=== PATIENT | male | born 1955 | race American Indian/Alaskan Native ===

== ENCOUNTER 2016-10-24 14:52 | Emergency (ER) | payer SELFPAY ==
[2016-10-24 15:28] VITALS: BP 142/92
[2016-10-24 15:49] LABS: Basophils % (Auto) 0.6 % (0.0-1.8); Eosinophils % (Auto) 1.6 % (0.0-4.3); Hematocrit 39.3 % (35.5-45.6); Hemoglobin 12.8 gm/dl (11.8-15.2); Mean Corpuscular HGB Conc 33 % (32-34); Mean Corpuscular Hemoglobin 28 pg (28-32); Mean Corpuscular Volume 85 fl (84-94); Platelet Count 246 K/mm3 (140-440); Red Blood Count 4.64 M/mm3 (3.65-5.03); Red Cell Distribution Width 15.5 % (13.2-15.2); White Blood Count 3.6 K/mm3 (4.5-11.0)
[2016-10-24 16:11] LABS: Albumin 4.6 g/dL (3.9-5); Albumin/Globulin Ratio 1.6 %; Bilirubin,Total 0.5 mg/dL (0.1-1.2); Calcium 9.4 mg/dL (8.4-10.2); Chloride 98.1 mmol/L (98-107); Potassium 4.5 mmol/L (3.6-5.0); Total Protein 7.4 g/dL (6.3-8.2)
[2016-10-24 17:42] LABS: Bilirubin,Urine NEG (Negative); Blood,Urine NEG (Negative); Ketones,Urine NEG (Negative); Leukocyte Esterase,Urine NEG (Negative); Mucus,Urine FEW /HPF; Nitrite,Urine NEG (Negative); Protein,Urine <15 mg/dL mg/dL (Negative); Urobilinogen,Urine < 2.0 mg/dL (<2.0)
--- NOTE | 2016-10-26 17:09 | ED Elopement Review ---
ED Pt Elopement review - Results review Lab results: Laboratory Tests 10/24/16 10/24/16 10/24/16 15:34 15:34 Unknown WBC 3.6 L RBC 4.64 Hgb 12.8 Hct 39.3 MCV 85 MCH 28 MCHC 33 RDW 15.5 H Plt Count 246 Lymph % (Auto) 45.7 H Blair % (Auto) 10.1 H Eos % (Auto) 1.6 Baso % (Auto) 0.6 Lymph # 1.6 Blair # 0.4 Eos # 0.1 Baso # 0.0 Seg Neutrophils % 42.0 Seg Neutrophils # 1.5 L Sodium 136 L Potassium 4.5 Chloride 98.1 Carbon Dioxide 26 Anion Gap 16 BUN 15 Creatinine 1.5 Estimated GFR 58 BUN/Creatinine Ratio 10.00 Glucose 114 H Calcium 9.4 Total Bilirubin 0.50 AST 19 ALT 12 Alkaline Phosphatase 45 Total Protein 7.4 Albumin 4.6 Albumin/Globulin Ratio 1.6 Urine Color Yellow Urine Turbidity Clear Urine pH 5.0 Ur Specific [place] 1.016 Urine Protein <15 mg/dl Urine Glucose (UA) Neg Urine Ketones Neg Urine Blood Neg Urine Nitrite Neg Urine Bilirubin Neg Urine Urobilinogen < 2.0 Ur Leukocyte Esterase Neg Urine WBC (Auto) 1.0 Urine RBC (Auto) 2.0 U Epithel Cells (Auto) < 1.0 Urine Mucus Few - Call Back decision Pt Call Back Decision: No action required
== END 2016-10-24 21:08 | disposition left against medical advice (07) ==
LOC: ED 14:52
DX: R51 Headache (principal); R42 Dizziness and giddiness; Z53.21 Procedure and treatment not carried out due to patient leaving prior to being seen by health care provider
CPT/HCPCS: 36415; 80053; 81001; 85025; 93005; 93010

== ENCOUNTER 2021-02-15 05:47 | Observation (INO) | payer SELFPAY ==
[2021-02-15] MEDS ORDERED: ONDANSETRON 4 MG/2 ML INJ IM ONE (15:25)
--- NOTE | 2021-02-15 15:29 | Emergency Department Report ---
<SMITHA MAZARIEGOS - Last Filed: 02/15/21 23:07> ED Abdominal Pain HPI - General Chief Complaint: Abdominal Pain Stated Complaint: NAUSEA/ETOH Time Seen by Provider: 02/15/21 15:25 - Related Data Previous Rx's Medication Instructions Recorded Last Taken Type Aspirin EC [Ecotrin] 325 mg PO QDAY #30 tablet 02/17/21 Unknown Rx Lisinopril [Zestril TAB] 10 mg PO DAILY #30 02/17/21 Unknown Rx Pantoprazole [Protonix] 40 mg PO QDAY #30 tablet 02/17/21 Unknown Rx Allergies Allergy/AdvReac Type Severity Reaction Status Date / Time No Known Allergies Allergy Verified 02/15/21 15:49 ED Past Medical Hx - Medications Home Medications: Home Medications Medication Instructions Recorded Confirmed Last Taken Type Aspirin EC [Ecotrin] 325 mg PO QDAY #30 tablet 02/17/21 Unknown Rx Lisinopril [Zestril TAB] 10 mg PO DAILY #30 02/17/21 Unknown Rx Pantoprazole [Protonix] 40 mg PO QDAY #30 tablet 02/17/21 Unknown Rx ED Medical Decision Making - Lab Data Result diagrams: 02/15/21 15:29 02/15/21 15:29 ED Disposition Clinical Impression: Elevated troponin, Non-STEMI (non-ST elevated myocardial infarction) Disposition: ADMITTED INPATIENT Is pt being admited?: Yes Does the pt Need Aspirin: Yes Condition: Stable <LEBRON PAPPAS - Last Filed: 02/18/21 11:05> ED Abdominal Pain HPI - General Source: patient Mode of arrival: Ambulatory Limitations: No Limitations - History of Present Illness Initial Comments: Patient is 65 years old male with history of hypertension. Patient presented to the ER complaining of epigastric abdominal pain started last night. Patient stated that pain started after he started drinking alcohol. Patient also reported nausea and vomiting. He denied any hematemesis, melena or hematochezia. Patient also denied any chest pain or shortness of breath. No fever or chills. MD Complaint: abdominal pain -: Last night Location: epigastric Radiation: none Migration to: no migration Severity: moderate Associated Symptoms: nausea, vomiting ED Review of Systems ROS: Stated complaint: NAUSEA/ETOH Other details as noted in HPI Comment: All other systems reviewed and negative Constitutional: denies: chills, fever Respiratory: denies: cough, shortness of breath, SOB with exertion Cardiovascular: denies: chest pain, palpitations Gastrointestinal: abdominal pain, nausea, vomiting. denies: diarrhea, cons tipation, hematemesis, melena, hematochezia Genitourinary: denies: testicular pain, testicular mass Musculoskeletal: denies: back pain Neurological: denies: headache, weakness, numbness, paresthesias, confusion Psychiatric: anxiety. denies: suicidal thoughts ED Past Medical Hx - Past Medical History Previous Medical History?: Yes Hx Hypertension: Yes (2013) Hx Congestive Heart Failure: No Hx Diabetes: No Hx GERD: Yes Hx Sickle Cell Disease: No Hx Arthritis: Yes Hx Asthma: No Hx COPD: No Additional medical history: Previous GI ulcers,. recoverying alcolholic. VERTIGO - Surgical History Past Surgical History?: Yes Additional Surgical History: chest tube right side about 3 yrs ago. HEMORRHOIDECTOMY - Social History Smoking Status: Former Smoker Substance Use Type: None ED Physical Exam - General Limitations: No Limitations General appearance: alert, in no apparent distress - Head Head exam: Present: atraumatic, normocephalic, normal inspection - Eye Eye exam: Present: normal appearance, PERRL - ENT ENT exam: Present: normal exam, normal orophraynx, mucous membranes moist - Neck Neck exam: Present: normal inspection, full ROM. Absent: tenderness, meningismus - Respiratory Respiratory exam: Present: normal lung sounds bilaterally - Cardiovascular Cardiovascular Exam: Present: tachycardia. Absent: systolic murmur, diastolic murmur, gallop - GI/Abdominal GI/Abdominal exam: Present: soft, normal bowel sounds. Absent: distended, tenderness, guarding, rebound, rigid, organomegaly, mass, bruit, pulsatile mass, hernia - Back Exam Back exam: Present: normal inspection, full ROM. Absent: CVA tenderness (R), CVA tenderness (L) - Neurological Exam Neurological exam: Present: alert, oriented X3, CN II-XII intact, normal gait, reflexes normal - Psychiatric Psychiatric exam: Present: normal mood. Absent: suicidal ideation - Skin Skin exam: Present: warm, intact, normal color ED Course Vital Signs 02/15/21 02/15/21 02/15/21 14:47 18:16 20:39 Temperature 98.7 F 99.8 F H Pulse Rate 114 H 123 H Respiratory 18 17 Rate Blood Pressure 151/89 164/98 Blood Pressure [Left] O2 Sat by Pulse 99 99 99 Oximetry 02/16/21 02/16/21 02/16/21 08:07 08:25 08:26 Temperature Pulse Rate Respiratory Rate Blood Pressure 146/91 147/89 135/84 Blood Pressure [Left] O2 Sat by Pulse Oximetry 02/16/21 02/16/21 02/16/21 08:27 08:28 08:30 Temperature Pulse Rate Respiratory Rate Blood Pressure 141/86 138/88 130/85 Blood Pressure [Left] O2 Sat by Pulse Oximetry 02/16/21 02/16/21 02/16/21 10:19 10:25 10:30 Temperature 99.2 F Pulse Rate 86 94 H Respiratory 16 Rate Blood Pressure 142/87 Blood Pressure 142/87 [Left] O2 Sat by Pulse 97 100 99 Oximetry 02/16/21 02/16/21 02/16/21 10:46 11:00 11:16 Temperature Pulse Rate 77 81 90 Respiratory Rate Blood Pressure 142/87 114/65 114/65 Blood Pressure [Left] O2 Sat by Pulse 98 98 100 Oximetry 02/16/21 02/16/21 02/16/21 11:30 11:46 12:00 Temperature Pulse Rate 79 83 87 Respiratory Rate Blood Pressure 142/87 142/87 112/70 Blood Pressure [Left] O2 Sat by Pulse 98 99 99 Oximetry 02/16/21 02/16/21 02/16/21 12:16 12:30 12:46 Temperature Pulse Rate 80 92 H 100 H Respiratory Rate Blood Pressure 112/70 112/70 112/70 Blood Pressure [Left] O2 Sat by Pulse 98 99 99 Oximetry 02/16/21 02/16/21 02/16/21 13:00 13:16 13:30 Temperature Pulse Rate 110 H 105 H 100 H Respiratory Rate Blood Pressure 112/70 112/70 112/70 Blood Pressure [Left] O2 Sat by Pulse 99 98 99 Oximetry 02/16/21 02/16/21 02/16/21 13:46 14:00 14:16 Temperature Pulse Rate 100 H 106 H 103 H Respiratory Rate Blood Pressure 112/70 162/92 162/92 Blood Pressure [Left] O2 Sat by Pulse 100 100 99 Oximetry 09/02/21 09/02/21 09/02/21 14:30 14:46 15:00 Temperature Pulse Rate 99 H 96 H 96 H Respiratory Rate Blood Pressure 162/92 162/92 98/69 Blood Pressure [Left] O2 Sat by Pulse 100 99 100 Oximetry 02/16/21 02/16/21 02/16/21 15:16 15:30 15:46 Temperature Pulse Rate 96 H 95 H 99 H Respiratory Rate Blood Pressure 98/69 98/69 98/69 Blood Pressure [Left] O2 Sat by Pulse 100 100 100 Oximetry 02/16/21 02/16/21 02/16/21 16:00 16:16 16:30 Temperature Pulse Rate 91 H 95 H 97 H Respiratory Rate Blood Pressure 126/91 126/91 126/91 Blood Pressure [Left] O2 Sat by Pulse 100 98 99 Oximetry 02/16/21 02/16/21 02/16/21 16:46 17:00 17:16 Temperature Pulse Rate 98 H 96 H 97 H Respiratory Rate Blood Pressure 126/91 121/84 121/84 Blood Pressure [Left] O2 Sat by Pulse 99 95 99 Oximetry 02/16/21 02/16/21 02/16/21 17:30 17:46 18:00 Temperature Pulse Rate 95 H 94 H 97 H Respiratory Rate Blood Pressure 121/84 121/84 121/84 Blood Pressure [Left] O2 Sat by Pulse 100 100 97 Oximetry 02/16/21 02/16/21 02/16/21 18:16 18:30 18:46 Temperature Pulse Rate 92 H 99 H 98 H Respiratory Rate Blood Pressure 121/84 142/95 142/95 Blood Pressure [Left] O2 Sat by Pulse 98 93 95 Oximetry 02/16/21 02/16/21 02/16/21 19:00 19:16 19:30 Temperature Pulse Rate 99 H 88 91 H Respiratory Rate Blood Pressure 114/80 114/80 114/80 Blood Pressure [Left] O2 Sat by Pulse 97 100 99 Oximetry 02/16/21 02/16/21 02/16/21 19:46 20:00 20:16 Temperature Pulse Rate 91 H 92 H 92 H Respiratory Rate Blood Pressure 114/80 92/59 92/59 Blood Pressure [Left] O2 Sat by Pulse 98 96 97 Oximetry 02/16/21 02/16/21 02/16/21 20:30 20:46 21:00 Temperature Pulse Rate 89 85 90 Respiratory Rate Blood Pressure 92/59 92/59 109/72 Blood Pressure [Left] O2 Sat by Pulse 98 100 100 Oximetry 02/16/21 02/16/21 02/16/21 21:16 21:30 21:40 Temperature Pulse Rate 99 H 88 90 Respiratory Rate Blood Pressure 92/59 92/59 92/59 Blood Pressure [Left] O2 Sat by Pulse 100 99 99 Oximetry 02/16/21 02/16/21 02/16/21 21:50 22:00 22:10 Temperature Pulse Rate 95 H 95 H 98 H Respiratory Rate Blood Pressure 92/59 126/79 109/72 Blood Pressure [Left] O2 Sat by Pulse 97 98 98 Oximetry 02/16/21 02/16/21 02/16/21 22:20 22:30 22:40 Temperature Pulse Rate 99 H 99 H 96 H Respiratory Rate Blood Pressure 109/72 109/72 109/72 Blood Pressure [Left] O2 Sat by Pulse 97 97 97 Oximetry 02/16/21 02/16/21 02/17/21 22:50 23:30 00:04 Temperature 98.0 F Pulse Rate 92 H 96 H 100 H Respiratory 18 18 Rate Blood Pressure 109/72 126/85 Blood Pressure [Left] O2 Sat by Pulse 97 99 99 Oximetry ED Medical Decision Making - Lab Data Result diagrams: 02/17/21 04:53 02/17/21 04:53 Critical Care Time: Yes Critical care time in (mins) excluding proc time.: 30 Critical care attestation.: If time is entered above; I have spent that time in minutes in the direct care of this critically ill patient, excluding procedure time.
[2021-02-15 16:06] LABS: Basophils # (Auto) 0.1 K/mm3 (0.0-0.1); Basophils % (Auto) 0.4 % (0.0-1.8); Hematocrit 40.2 % (35.5-45.6); Hemoglobin 13.1 gm/dl (11.8-15.2); Lymphocytes # (Auto) 0.8 K/mm3 (1.2-5.4); Lymphocytes % (Auto) 5.7 % (13.4-35.0); Mean Corpuscular HGB Conc 33 % (32-34); Mean Corpuscular Volume 84 fl (84-94); Monocytes # (Auto) 0.7 K/mm3 (0.0-0.8); Monocytes % (Auto) 4.7 % (0.0-7.3); Platelet Count 339 K/mm3 (140-440); Red Blood Count 4.81 M/mm3 (3.65-5.03); Red Cell Distribution Width 14.9 % (13.2-15.2)
[2021-02-15 16:14] LABS: Bilirubin,Urine NEG (Negative); Blood,Urine SM (Negative); Color,Urine Yellow (Yellow); Mucus,Urine FEW /HPF; Urobilinogen,Urine < 2.0 mg/dL (<2.0)
[2021-02-15 16:22] LABS: Amphetamine Screen,Urine Negative; Benzodiazepines Screen,Urine Negative; Cannabinoid Screen,Urine Negative; Cocaine Screen,Urine Negative; Methadone Screen,Urine Negative; Opiate Screen,Urine Negative
[2021-02-15 16:28] LABS: Alanine Aminotransferase 17 units/L (7-56); Albumin 4.8 g/dL (3.9-5); BUN/Creatinine Ratio 10; Blood Urea Nitrogen 17 mg/dL (9-20); Calcium 9.9 mg/dL (8.4-10.2); Hemolysis Index 7
[2021-02-15] MEDS ORDERED: SODIUM CHLORIDE 0.9% 1000 ML 1,000 ML IV ONE (16:38)
[2021-02-15 16:39] LABS: Bilirubin,Direct < 0.2 mg/dL (0-0.2)
--- NOTE | 2021-02-15 17:15 | Cat Scan Report ---
CT ABDOMEN AND PELVIS WITHOUT CONTRAST INDICATION / CLINICAL INFORMATION: ABDOMINAL PAIN. TECHNIQUE: Axial CT images were obtained through the abdomen and pelvis without IV contrast. All CT scans at this location are performed using CT dose reduction for ALARA by means of automated exposure control. COMPARISON: None available. FINDINGS: LOWER CHEST: Mild thickening of the distal esophagus. LIVER: No significant abnormality. GALLBLADDER: No significant abnormality. BILE DUCTS: No significant abnormality. PANCREAS: No significant abnormality. SPLEEN: No significant abnormality. ADRENALS: No significant abnormality. RIGHT KIDNEY / URETER: No significant abnormality. Renal vascular calcification noted. LEFT KIDNEY / URETER: No significant abnormality. STOMACH / SMALL BOWEL: No significant abnormality. COLON: Diverticulosis without acute inflammation. APPENDIX: No significant abnormality. PERITONEUM: No free fluid. No free air. No fluid collection. LYMPH NODES: No significant adenopathy. AORTA / ARTERIES: Moderate atherosclerotic calcification without acute abnormality. IVC / VEINS: No significant abnormality. URINARY BLADDER: No significant abnormality. REPRODUCTIVE ORGANS: No significant abnormality. ADDITIONAL FINDINGS: None. SKELETAL SYSTEM: No significant abnormality. IMPRESSION: 1. Negative for acute abdominopelvic abnormality. 2. Mild thickening distal esophagus, could reflect underlying esophagitis or gastroesophageal reflux . 3. Colonic diverticulosis without evidence of diverticulitis. Signer Name: Wood Santos MD Signed: 02/15/2021 5:11 PM Workstation Name: [id number]
[2021-02-15 17:58] LABS: Chol/HDL Ratio 1.7 %
--- NOTE | 2021-02-15 21:14 | Cat Scan Report ---
CTA CHEST WITH CONTRAST INDICATION / CLINICAL INFORMATION: chest pain/tachy. TECHNIQUE: Axial CT images were obtained through the chest after injection of IV contrast. 3 plane VT P and/or 3D reconstructions were produced. All CT scans at this location are performed using CT dose reduction for ALARA by means of automated exposure control. COMPARISON: None available. FINDINGS: PULMONARY ARTERIES: No pulmonary emboli. THORACIC AORTA: No significant abnormality. HEART: No significant abnormality. CORONARY ARTERY CALCIFICATION: None. MEDIASTINUM / LUBNA: No significant abnormality. PLEURA: No pleural effusion. No pneumothorax. LUNGS: No acute air space or interstitial disease. ADDITIONAL FINDINGS: None. UPPER ABDOMEN: No acute findings. SKELETAL STRUCTURES: No significant osseous abnormality. IMPRESSION: 1. No CT evidence for pulmonary embolism. 2. No acute findings. Signer Name: Wood Santos MD Signed: 02/15/2021 9:10 PM Workstation Name: [id number]
[2021-02-15] MEDS ORDERED: ASPIRIN 81 MG TAB CHEW PO ONE (23:08)
[2021-02-15] MEDS ORDERED: NITROGLYCERIN 0.4 MG TAB SUBL SL PRN (23:59)
[2021-02-15] MEDS ORDERED: traMADol 50 MG TAB PO PRN (23:59)
[2021-02-15] MEDS ORDERED: ONDANSETRON 4 MG/2 ML INJ IV PRN (23:59)
[2021-02-15] MEDS ORDERED: ACETAMINOPHEN 325 MG TAB PO PRN ×2 (23:59)
[2021-02-15] MEDS ORDERED: MORPHINE 2 MG/1 ML INJ IV PRN (23:59)
[2021-02-15] MEDS ORDERED: MAGNESIUM HYDROXIDE (MOM) ORAL LIQD UDC PO PRN (23:59)
[2021-02-15] MEDS ORDERED: MORPHINE 4 MG/1 ML INJ IV PRN ×2 (23:59)
--- NOTE | 2021-02-16 00:10 | History and Physical Report ---
History of Present Illness Date of examination: 02/15/21 Date of admission: 02/15/21 23:05 Chief complaint: Abdominal Pain History of present illness: 65-year-old male with significant past medical history of hypertension presenting to the emergency room today complaining of abdominal pain which has been ongoing over the past 24 hours. Abdominal pain is said to be in the upper abdomen. He denies any radiation, no known relieving or exacerbating factors. He however indicates that symptoms started after drinking significant amount of alcohol over the last 24 hours. Patient states that he quits alcohol abuse about 3 years ago but just started drinking lately because he was quite frustrated with his children and grandchildren's behavior. He had history of gastric ulcer in the past and indicates that he had endoscopy several years ago. Patient denies any fever or chills, no nausea vomiting, no chest pain or shortness of breath, no headache or dizziness, no diaphoresis. No hematuria or dysuria. Patient denies any sick contacts and no recent travel. Denies any contact with anyone with COVID-19. He admits he has not been vaccinated against COVID-19. Work-up in the emergency room today however reveals leukocytosis of 14.8, creatinine of 1.7, elevated troponin from initial 0.44 to 0.92. EKG was unremarkable CT angiogram was unremarkable. CT of the abdomen and pelvis shows mild thickening of the distal esophagus which could reflect underlying esophagitis or GERD. Past History Past Medical History: arthritis, GERD, hypertension, other (H/O gastric ulcers) Past Surgical History: Other (Chest tube placement 3 years ago,hemorrhoidectomy) Social history: smoking (Former smoker), alcohol abuse (Recovering alcoholic.) Family history: no significant family history Medications and Allergies Allergies Allergy/AdvReac Type Severity Reaction Status Date / Time No Known Allergies Allergy Verified 02/15/21 15:49 Home Medications Medication Instructions Recorded Confirmed Last Taken Type Ibuprofen [Motrin 600 MG tab] 600 mg PO Q8H PRN #30 tablet 05/28/16 02/15/21 Unknown Rx Lisinopril [Zestril TAB] 10 mg PO DAILY 02/15/21 02/15/21 02/15/21 History Active Meds: Active Medications Acetaminophen (Acetaminophen 325 Mg Tab) 650 mg PO Q4H PRN PRN Reason: Pain MILD(1-3)/Fever >100.5/HAGER Ondansetron HCl (Ondansetron 4 Mg/2 Ml Inj) 4 mg IV Q8H PRN PRN Reason: Nausea And Vomiting Sodium Chloride (Sodium Chloride 0.9% 10 Ml Flush Syringe) 10 ml IV BID NATHANAEL Sodium Chloride (Sodium Chloride 0.9% 10 Ml Flush Syringe) 10 ml IV PRN PRN PRN Reason: LINE FLUSH Sodium Chloride (Sodium Chloride 0.9% 10 Ml Flush Syringe) 10 ml IV PRN PRN PRN Reason: LINE FLUSH Review of Systems Constitutional: no fever, no chills Ears, nose, mouth and throat: no nasal congestion, no sore throat Cardiovascular: no chest pain, no palpitations Respiratory: no cough, no shortness of breath Gastrointestinal: abdominal pain (Epigastric), no nausea, no vomiting, no diarrhea Genitourinary Male: no dysuria, no hematuria, no flank pain, no nocturia Musculoskeletal: no neck pain, no low back pain Integumentary: no rash, no pruritis Neurological: no headaches, no confusion Psychiatric: no anxiety, no depression Endocrine: no polyphagia, no polydipsia, no polyuria, no nocturia Exam - Constitutional Vitals: Temp Pulse Resp BP Pulse Ox 98.7 F 114 H 18 151/89 99 02/15/21 14:47 02/15/21 14:47 02/15/21 14:47 02/15/21 14:47 02/15/21 18:16 General appearance: Present: no acute distress, well-nourished - EENT Eyes: Present: PERRL, EOM intact. Absent: scleral icterus ENT: hearing intact, clear oral mucosa, dentition normal - Neck Neck: Present: supple, normal ROM - Respiratory Respiratory effort: normal Respiratory: bilateral: CTA - Cardiovascular Rhythm: regular Heart Sounds: Present: S1 & S2. Absent: gallop, systolic murmur, diastolic murmur, rub, click - Extremities Extremities: no ischemia, pulses intact, pulses symmetrical, No edema, normal temperature, normal color, Full ROM Peripheral Pulses: within normal limits - Abdominal General gastrointestinal: Present: soft, tender (Mild epigastric tenderness, no guarding and no rebound tenderness.), non-distended, normal bowel sounds. Absent: mass - Integumentary Integumentary: Present: clear, warm, dry, normal turgor. Absent: rash - Musculoskeletal Musculoskeletal: strength equal bilaterally - Psychiatric Psychiatric: appropriate mood/affect, intact judgment & insight, memory intact, cooperative - Neurologic Neurologic: CNII-XII intact, no focal deficits, moves all extremities HEART Score - HEART Score History: Slightly suspicious EKG: Non-specific Age: 45-65 Risk factors: 1-2 risk factors Troponin: Troponin T 0.092 ng/mL (0.00-0.029) H 02/15/21 18:41 Troponin: > 3x normal limit HEART Score: 5 Results - Labs CBC & Chem 7: 02/15/21 15:29 02/15/21 15:29 Labs: Abnormal lab results 02/15/21 02/15/21 02/15/21 Range/Units 15:29 15:29 16:42 WBC 14.8 H (4.5-11.0) K/mm3 MCH 27 L (28-32) pg Lymph % (Auto) 5.7 L (13.4-35.0) % Lymph # (Auto) 0.8 L (1.2-5.4) K/mm3 Seg Neutrophils % 89.2 H (40.0-70.0) % Seg Neutrophils # 13.2 H (1.8-7.7) K/mm3 Chloride 94.5 L (98-107) mmol/L Creatinine 1.7 H (0.8-1.3) mg/dL Glucose 138 H (75-100) mg/dL Troponin T 0.044 H (0.00-0.029) ng/mL Total Protein 9.0 H (6.3-8.2) g/dL Cholesterol 239 H (50-199) mg/dL HDL Cholesterol 140 H (40-59) mg/dL 02/15/21 Range/Units 18:41 WBC (4.5-11.0) K/mm3 MCH (28-32) pg Lymph % (Auto) (13.4-35.0) % Lymph # (Auto) (1.2-5.4) K/mm3 Seg Neutrophils % (40.0-70.0) % Seg Neutrophils # (1.8-7.7) K/mm3 Chloride (98-107) mmol/L Creatinine (0.8-1.3) mg/dL Glucose (75-100) mg/dL Troponin T 0.092 H (0.00-0.029) ng/mL Total Protein (6.3-8.2) g/dL Cholesterol (50-199) mg/dL HDL Cholesterol (40-59) mg/dL Assessment and Plan - Patient Problems (1) Elevated troponin Current Visit: Yes Status: Acute Plan to address problem: Etiology is unclear. EKG has been unremarkable. Patient has denied any chest pain. We monitor troponin levels. Consult placed to cardiology for evaluation further recommendation. (2) Abdominal pain Current Visit: Yes Status: Acute Plan to address problem: Epigastric. Possibly secondary to esophagitis. Patient has also been drinking alcohol lately. Will place on IV analgesic medication as needed and also place on proton pump inhibitor. (3) Leukocytosis Current Visit: Yes Status: Acute Plan to address problem: No clear etiology. However patient placed on empiric IV antibiotics. (4) DVT prophylaxis Current Visit: Yes Status: Acute Plan to address problem: Patient placed on subcutaneous heparin. (5) Full code status Current Visit: Yes Status: Acute Plan to address problem: Patient is full code.
[2021-02-16] MEDS ORDERED: LORazepam 2 MG/ML VIAL IV PRN ×3 (00:15)
[2021-02-16] MEDS: PIPERACILLIN/TAZOBACTAM 3.375 3.375 GM/50 ML BAG IV SCH ×2 (06:01→18:06)
[2021-02-16] MEDS: HEPARIN 5,000 UNIT/1 ML VIAL SUB-Q SCH ×2 (06:02→14:06)
[2021-02-16] MEDS ORDERED: REGADENOSON 0.4 MG/5 ML INJ IV ONE (08:20)
--- NOTE | 2021-02-16 08:51 | Event Note ---
Date: 02/16/21 This is a follow-up from an admission earlier this morning. Patient seen and examined. Etiology of chest pain likely related to esophagitis. However, given elevated troponin, we will proceed with Lexiscan stress test and follow-up results. Cardiology consulted. If patient's stress test is negative, and no evidence of DTs, anticipate discharge later today or in a.m. Total visit time equals 35 minutes with greater than 50% spent on coordination of care and counseling.
--- NOTE | 2021-02-16 10:09 | Consultation ---
History of Present Illness Consult date: 02/16/21 Consult reason: elevated troponin History of present illness: This is a 65-year old M who presented to this hospital with complaints of abdominal pain, nausea, vomiting following drinking a large amount of alcohol. CT scan of the abdomen showed no acute abnormalities. CTA scan was negative for pulmonary embolism. Labs measurement shows nonspecific elevated troponin. Patient denies chest pain, denies shortness of breath, and denies palpitations. No prior cardiac history. Patient was admitted by the hospitalist service and ordered for rule out [place] protocol. Cardiology consultation has been requested. Past History Past Medical History: arthritis, GERD, hypertension, other (H/O gastric ulcers) Past Surgical History: Other (Chest tube placement 3 years ago,hemorrhoidectomy) Social history: smoking (Former smoker), alcohol abuse Family history: no significant family history Medications and Allergies Allergies Allergy/AdvReac Type Severity Reaction Status Date / Time No Known Allergies Allergy Verified 02/15/21 15:49 Home Medications Medication Instructions Recorded Confirmed Last Taken Type Ibuprofen [Motrin 600 MG tab] 600 mg PO Q8H PRN #30 tablet 05/28/16 02/15/21 Unknown Rx Lisinopril [Zestril TAB] 10 mg PO DAILY 02/15/21 02/15/21 02/15/21 History Active Meds: Active Medications Acetaminophen (Acetaminophen 325 Mg Tab) 650 mg PO Q4H PRN PRN Reason: Pain MILD(1-3)/Fever >100.5/HAGER Last Admin: 02/16/21 06:03 Dose: 650 mg Documented by: Aspirin (Aspirin Ec 325 Mg Tab) 325 mg PO QDAY [facility] Heparin Sodium (Porcine) (Heparin 5,000 Unit/1 Ml Vial) 5,000 unit SUB-Q Q8HR [facility] Last Admin: 02/16/21 06:02 Dose: 5,000 unit Documented by: Piperacillin Sod/Tazobactam Sod (Zosyn/Ns 3.375gm/50ml) 3.375 gm in 50 mls @ 100 mls/hr IV Q8H [facility]; Protocol Last Admin: 02/16/21 06:01 Dose: 100 mls/hr Documented by: Lorazepam (Lorazepam 2 Mg/Ml Vial) 2 mg IV Q1HR PRN PRN Reason: CIWA-Ar 8-15 Lorazepam (Lorazepam 2 Mg/Ml Vial) 4 mg IV Q1HR PRN PRN Reason: CIWA-Ar 16-25 Lorazepam (Lorazepam 2 Mg/Ml Vial) 4 mg IV Q15MIN PRN PRN Reason: CIWA-Ar >25 Magnesium Hydroxide (Magnesium Hydroxide (Mom) Oral Liqd Udc) 30 ml PO Q4H PRN PRN Reason: Constipation Morphine Sulfate (Morphine 2 Mg/1 Ml Inj) 2 mg IV Q4H PRN PRN Reason: Pain, Moderate (4-6) Last Admin: 02/16/21 06:01 Dose: 2 mg Documented by: Morphine Sulfate (Morphine 4 Mg/1 Ml Inj) 4 mg IV Q4H PRN PRN Reason: Pain , Severe (7-10) Morphine Sulfate (Morphine 4 Mg/1 Ml Inj) 2 mg IV Q5MIN PRN PRN Reason: Chest Pain Nitroglycerin (Nitroglycerin 0.4 Mg Tab Subl) 0.4 mg SL Q5M PRN PRN Reason: Chest Pain Ondansetron HCl (Ondansetron 4 Mg/2 Ml Inj) 4 mg IV Q8H PRN PRN Reason: Nausea And Vomiting Pantoprazole Sodium (Pantoprazole 40 Mg Inj) 40 mg IV BID NATHANAEL Sodium Chloride (Sodium Chloride 0.9% 10 Ml Flush Syringe) 10 ml IV BID NATHANAEL Sodium Chloride (Sodium Chloride 0.9% 10 Ml Flush Syringe) 10 ml IV PRN PRN PRN Reason: LINE FLUSH Tramadol HCl (Tramadol 50 Mg Tab) 50 mg PO Q6H PRN PRN Reason: Pain, Moderate (4-6) Review of Systems Cardiovascular: no chest pain, no palpitations Physical Examination Vital Signs Temp Pulse Resp BP Pulse Ox 98.7 F 114 H 18 151/89 99 02/15/21 14:47 02/15/21 14:47 02/15/21 14:47 02/15/21 14:47 02/15/21 14:47 General appearance: no acute distress HEENT: Positive: PERRL Neck: Positive: trachea midline Cardiac: Positive: Reg Rate and Rhythm Lungs: Positive: Decreased Breath Sounds Neuro: Positive: Grossly Intact Extremities: Absent: edema Results 02/15/21 15:29 02/15/21 15:29 Cardiac Enzymes 02/15/21 Range/Units 15:29 AST 21 (5-40) units/L Lipids 02/15/21 Range/Units 16:42 Triglycerides 94 (2-149) mg/dL Cholesterol 239 H (50-199) mg/dL HDL Cholesterol 140 H (40-59) mg/dL Cholesterol/HDL Ratio 1.70 % CBC 02/15/21 Range/Units 15:29 WBC 14.8 H (4.5-11.0) K/mm3 RBC 4.81 (3.65-5.03) M/mm3 Hgb 13.1 (11.8-15.2) gm/dl Hct 40.2 (35.5-45.6) % Plt Count 339 (140-440) K/mm3 Lymph # (Auto) 0.8 L (1.2-5.4) K/mm3 [place] # (Auto) 0.7 (0.0-0.8) K/mm3 Eos # (Auto) 0.0 (0.0-0.4) K/mm3 Baso # (Auto) 0.1 (0.0-0.1) K/mm3 Comprehensive Metabolic Panel 02/15/21 Range/Units 15:29 Sodium 139 (137-145) mmol/L Potassium 4.8 (3.6-5.0) mmol/L Chloride 94.5 L (98-107) mmol/L Carbon Dioxide 28 (22-30) mmol/L BUN 17 (9-20) mg/dL Creatinine 1.7 H (0.8-1.3) mg/dL Glucose 138 H (75-100) mg/dL Calcium 9.9 (8.4-10.2) mg/dL Direct Bilirubin < 0.2 (0-0.2) mg/dL Indirect Bilirubin 0.2 mg/dL AST 21 (5-40) units/L ALT 17 (7-56) units/L Alkaline Phosphatase 87 (35-129) units/L Total Protein 9.0 H (6.3-8.2) g/dL Albumin 4.8 (3.9-5) g/dL Assessment and Plan - Patient Problems (1) Elevated troponin Current Visit: Yes Status: Acute Plan to address problem: Nonspecific elevated troponin Stress thallium test this presentation revealed no reversible ischemia, normal LVEF. No further cardiac workup indicated.
--- NOTE | 2021-02-16 10:13 | Electrocardiograph Report ---
[facility] Test Date: 2021-02-15 Test Time: 16:31:51 Pat Name: IRA RAUSCH Department: Room: [place] [address] Gender: M Creative Developer: EM : 1955 Requested By: LEBRON PAPPAS Order Number: [id number] Reading MD: Conor Ga Measurements Intervals [place] Rate: 142 P: VA: QRS: 71 QRSD: 65 T: 90 QT: 291 QTc: 447 Interpretive Statements Junctional tachycardia OR SVT No previous ECG available for comparison Electronically Signed On 02-16-2021 10:13:41 EDT by Conor Ga
[2021-02-16] MEDS: PANTOPRAZOLE 40 MG INJ IV SCH (12:42)
[2021-02-17] MEDS: HEPARIN 5,000 UNIT/1 ML VIAL SUB-Q SCH ×3 (03:29→16:33)
[2021-02-17] MEDS: PANTOPRAZOLE 40 MG INJ IV SCH ×2 (03:30→10:09)
[2021-02-17] MEDS: PIPERACILLIN/TAZOBACTAM 3.375 3.375 GM/50 ML BAG IV SCH ×2 (03:38→16:32)
[2021-02-17 05:55] LABS: Basophils % (Auto) 0.4 % (0.0-1.8); Eosinophils # (Auto) 0.1 K/mm3 (0.0-0.4); Hematocrit 40.6 % (35.5-45.6); Hemoglobin 13.3 gm/dl (11.8-15.2); Lymphocytes # (Auto) 1.6 K/mm3 (1.2-5.4); Lymphocytes % (Auto) 21.9 % (13.4-35.0); Mean Corpuscular HGB Conc 33 % (32-34); Mean Corpuscular Volume 86 fl (84-94); Monocytes # (Auto) 0.6 K/mm3 (0.0-0.8); Monocytes % (Auto) 7.8 % (0.0-7.3); Platelet Count 272 K/mm3 (140-440); Red Blood Count 4.73 M/mm3 (3.65-5.03); Red Cell Distribution Width 14.5 % (13.2-15.2)
[2021-02-17 06:11] LABS: Calcium 9.2 mg/dL (8.4-10.2)
[2021-02-17 06:14] LABS: INR 0.85 (0.87-1.13)
--- NOTE | 2021-02-17 08:14 | Discharge Summary ---
Providers - Providers Date of Admission: 02/15/21 23:05 Date of discharge: 02/17/21 Attending physician: CHAUNCEY GAY 02/15/21 Consult to Cardiac Rehabilitation [CONS] Routine Reason For Exam: Phase I 02/15/21 23:59 Consult to Cardiology [CONS] Routine Consulting Provider: AIDAN ROBERTS Reason For Exam: ELEVATED TROPONIN Primary care physician: [employer] Hospitalization Reason for admission: Chest pain, EtOH abuse Condition: Stable Hospital course: This is a 65-year old M who presented to this hospital with complaints of abdominal pain, nausea, vomiting following drinking a large amount of alcohol. CT scan of the abdomen showed no acute abnormalities. CTA scan was negative for pulmonary embolism. Labs measurement shows nonspecific elevated troponin. The patient was admitted with diagnosis of EtOH abuse/withdrawal, elevated troponin, abdominal pain, leukocytosis. Patient denies chest pain, denies shortness of breath, and denies palpitations. No prior cardiac history. Patient was admitted by the hospitalist service and ordered for rule out [place] protocol. Cardiology consultation was obtained because of the elevated troponin. The patient underwent stress thallium test which revealed no reversible ischemia and normal LVEF. Patient was placed on CIWA protocol and return back to his baseline. Patient is felt to have received maximal hospital benefit and will be discharged home. Dedicated discharge time 35 minutes. Disposition: 01 HOME / SELF CARE / HOMELESS Final Discharge Diagnosis (Prints w/discharge instructions): Elevated troponin, EtOH abuse Core Measure Documentation - Palliative Care Palliative Care/ Comfort Measures: Not Applicable - Core Measures Any of the following diagnoses?: none Exam - Constitutional Vitals: Temp Pulse Resp BP Pulse Ox 98.4 F 80 18 136/93 99 02/17/21 04:37 02/17/21 04:37 02/17/21 04:37 02/17/21 04:37 02/17/21 04:37 General appearance: Present: no acute distress, well-nourished - EENT Eyes: Present: PERRL ENT: hearing intact, clear oral mucosa - Neck Neck: Present: supple, normal ROM - Respiratory Respiratory effort: normal Respiratory: bilateral: CTA - Cardiovascular Heart Sounds: Present: S1 & S2. Absent: rub, click - Extremities Extremities: pulses symmetrical, No edema Peripheral Pulses: within normal limits - Abdominal General gastrointestinal: Present: soft, non-tender, non-distended, normal bowel sounds Male genitourinary: Present: normal - Integumentary Integumentary: Present: clear, warm, dry - Musculoskeletal Musculoskeletal: gait normal, strength equal bilaterally - Psychiatric Psychiatric: appropriate mood/affect, intact judgment & insight - Neurologic Neurologic: CNII-XII intact, moves all extremities Plan Activity: advance as tolerated Weight Bearing Status: Weight Bear as Tolerated Diet: regular Follow up with: PRIMARY CARE, [Primary Care Provider] - 3-5 Days Prescriptions: Aspirin EC [Ecotrin] 325 mg PO QDAY #30 tablet Pantoprazole [Protonix] 40 mg PO QDAY #30 tablet Lisinopril [Zestril TAB] 10 mg PO DAILY #30
[2021-02-17] MEDS ORDERED: ASPIRIN EC 325 MG TAB PO SCH (10:00)
--- NOTE | 2021-02-17 11:14 | Progress Note ---
Assessment and Plan - Patient Problems (1) Elevated troponin Current Visit: Yes Status: Acute Plan to address problem: Nonspecific elevated troponin Stress thallium test this presentation revealed no reversible ischemia, normal LVEF. Conservative cardiac management. (2) Abdominal pain Current Visit: Yes Status: Acute Subjective Date of service: 02/17/21 Interval history: Patient is resting in bed comfortably. No cardiac complaints. Objective Vital Signs Temp Pulse Resp BP Pulse Ox 02/17/21 08:21 98.2 F 92 H 20 128/89 97 02/17/21 04:37 98.4 F 80 18 136/93 99 02/17/21 00:04 100 H 18 99 02/16/21 23:30 98.0 F 96 H 18 126/85 99 02/16/21 22:50 92 H 109/72 97 02/16/21 22:40 96 H 109/72 97 02/16/21 22:30 99 H 109/72 97 02/16/21 22:20 99 H 109/72 97 02/16/21 22:10 98 H 109/72 98 02/16/21 22:00 95 H 126/79 98 02/16/21 21:50 95 H 92/59 97 02/16/21 21:40 90 92/59 99 02/16/21 21:30 88 92/59 99 02/16/21 21:16 99 H 92/59 100 02/16/21 21:00 90 109/72 100 02/16/21 20:46 85 92/59 100 02/16/21 20:30 89 92/59 98 02/16/21 20:16 92 H 92/59 97 02/16/21 20:00 92 H 92/59 96 02/16/21 19:46 91 H 114/80 98 02/16/21 19:30 91 H 114/80 99 02/16/21 19:16 88 114/80 100 02/16/21 19:00 99 H 114/80 97 02/16/21 18:46 98 H 142/95 95 02/16/21 18:30 99 H 142/95 93 02/16/21 18:16 92 H 121/84 98 02/16/21 18:00 97 H 121/84 97 02/16/21 17:46 94 H 121/84 100 02/16/21 17:30 95 H 121/84 100 02/16/21 17:16 97 H 121/84 99 02/16/21 17:00 96 H 121/84 95 02/16/21 16:46 98 H 126/91 99 02/16/21 16:30 97 H 126/91 99 02/16/21 16:16 95 H 126/91 98 02/16/21 16:00 91 H 126/91 100 02/16/21 15:46 99 H 98/69 100 02/16/21 15:30 95 H 98/69 100 02/16/21 15:16 96 H 98/69 100 02/16/21 15:00 96 H 98/69 100 02/16/21 14:46 96 H 162/92 99 02/16/21 14:30 99 H 162/92 100 02/16/21 14:16 103 H 162/92 99 02/16/21 14:00 106 H 162/92 100 02/16/21 13:46 100 H 112/70 100 02/16/21 13:30 100 H 112/70 99 02/16/21 13:16 105 H 112/70 98 02/16/21 13:00 110 H 112/70 99 02/16/21 12:46 100 H 112/70 99 02/16/21 12:30 92 H 112/70 99 02/16/21 12:16 80 112/70 98 02/16/21 12:00 87 112/70 99 02/16/21 11:46 83 142/87 99 02/16/21 11:30 79 142/87 98 02/16/21 11:16 90 114/65 100 - Physical Examination General: No Apparent Distress HEENT: Positive: PERRL Neck: Positive: trachea midline Cardiac: Positive: Reg Rate and Rhythm Lungs: Positive: Decreased Breath Sounds Neuro: Positive: Grossly Intact Extremities: Absent: edema - Labs and Meds Coagulation 02/17/21 Range/Units 04:53 PT 12.1 L (12.2-14.9) Sec. INR 0.85 L (0.87-1.13) CBC 02/17/21 Range/Units 04:53 WBC 7.4 (4.5-11.0) K/mm3 RBC 4.73 (3.65-5.03) M/mm3 Hgb 13.3 (11.8-15.2) gm/dl Hct 40.6 (35.5-45.6) % Plt Count 272 (140-440) K/mm3 Lymph # (Auto) 1.6 (1.2-5.4) K/mm3 [place] # (Auto) 0.6 (0.0-0.8) K/mm3 Eos # (Auto) 0.1 (0.0-0.4) K/mm3 Baso # (Auto) 0.0 (0.0-0.1) K/mm3 Comprehensive Metabolic Panel 02/17/21 Range/Units 04:53 Sodium 137 (137-145) mmol/L Potassium 3.8 D (3.6-5.0) mmol/L Chloride 97.3 L (98-107) mmol/L Carbon Dioxide 30 (22-30) mmol/L BUN 18 (9-20) mg/dL Creatinine 1.5 H (0.8-1.3) mg/dL Glucose 82 (75-100) mg/dL Calcium 9.2 (8.4-10.2) mg/dL
[2021-02-17 12:30] VITALS: BP 126/79
== END 2021-02-17 16:38 | disposition home or self-care (01) ==
LOC: ED 05:47 → 4A 23:05
PROVIDERS: ADMIT Internal Medicine Geriatric Medicine; ATTEND Hospitalist
DX: I21.4 Non-ST elevation (NSTEMI) myocardial infarction (principal); R10.10 Upper abdominal pain, unspecified; R77.8 Other specified abnormalities of plasma proteins; D72.829 Elevated white blood cell count, unspecified; I10 Essential (primary) hypertension; M19.90 Unspecified osteoarthritis, unspecified site; K21.9 Gastro-esophageal reflux disease without esophagitis; Z79.899 Other long term (current) drug therapy; Z98.890 Other specified postprocedural states; Z87.891 Personal history of nicotine dependence; Z79.82 Long term (current) use of aspirin
CPT/HCPCS: 36415; 71275; 74176; 78452; 80048; 80061; 80076; 80307; 81001; 83690; 83880; 84484; 85025; 85610; 93005; 93017; 93306; 96361; 96365; 96366; 96372; 96375; 96376; 99291; A9502; C9113; G0378; J1644; J2060; J2270; J2405; J2543; J2785; J7030; Q9967